=== PATIENT | female | born 1995 ===

== ENCOUNTER 2020-10-03 12:29 | Outpatient (CLI) | payer OTHER ==
[2020-10-03 13:49] VITALS: BP 120/68
[2020-10-03] MEDS ORDERED: LACTATED RINGERS 1,000 ML IV SCH (14:00)
== END 2020-10-03 14:55 | disposition home or self-care (01) ==
LOC: TRG 12:29 → APU 12:32 → TRG 14:55
PROVIDERS: ATTEND Obstetrics & Gynecology
DX: Z34.93 Encounter for supervision of normal pregnancy, unspecified, third trimester (principal); Z3A.37 37 weeks gestation of pregnancy
CPT/HCPCS: 59025

== ENCOUNTER 2020-10-06 03:32 | Inpatient (IN) | payer OTHER ==
--- NOTE | 2020-10-06 05:56 | History and Physical Report ---
History of Present Illness Date of examination: 10/06/20 Date of admission: 10/06/2020 Chief complaint: Contractions that started yesterday afternoon and became stronger during the night. SROM clear fluid yesterday in the AM, unknown time. History of present illness: Pt is a 25 y.o. Ecuadorean speaking @ 37.5 wks by EDC of 10/22/2020. This is complicated by GDM-diet controlled. She states that she started to have contractions on the afternoon of 10/05 after her water broke, for clear fluid, in the AM. She is not sure exactly what time her water broke, just that it was in the AM. She denies medical, surgical, or secondary set up man/abnormal PAPs. Denies drug/alcohol use. Past History Past Medical History: no pertinent history Past Surgical History: no surgical history [employer]ER History: other (GDM this . ) Family/Genetic History: none Social history: no significant social history - Obstetrical History Expected Date of Delivery: 10/22/20 Actual Gestation: 37 Week(s) 5 Day(s) : 1 Para: 0 Hx # Term Pregnancies: 0 Number of Pregnancies: 0 Spontaneous Abortions: 0 Induced : 0 Number of Living Children: 0 Medications and Allergies Allergies Allergy/AdvReac Type Severity Reaction Status Date / Time No Known Allergies Allergy Verified 10/03/20 13:29 Home Medications Medication Instructions Recorded Confirmed Last Taken Type Iron 1 tab PO DAILY 10/06/20 10/06/20 1 Day Ago History ~10/05/20 One Daily Tablet 1 tab PO DAILY 10/06/20 10/06/20 1 Day Ago History ~10/05/20 Review of Systems All systems: negative - Vital Signs Vital signs: Vital Signs Temp Pulse Resp BP 98.0 F 88 20 123/74 10/06/20 04:02 10/06/20 04:02 10/06/20 04:02 10/06/20 04:02 Temp Pulse Resp BP Pulse Ox 98.0 F 88 20 123/74 10/06/20 04:02 10/06/20 04:02 10/06/20 04:02 10/06/20 04:02 - Physical Exam Breasts: Positive: deferred Cardiovascular: Regular rate Lungs: Positive: Normal air movement Abdomen: Positive: normal appearance, soft Genitourinary (Female): Positive: normal external genitalia, normal perenium Vulva: both: normal Vagina: Positive: normal moisture Uterus: Positive: normal size Extremities: Positive: normal - Obstetrical FHR: category 1 Uterine Contraction Monitor Mode: External Cervical Dilatation: 3 Cervical Effacement Percentage: 70 station: -2 Uterine Contraction Pattern: Regular Uterine Tone Measurement Phase: Resting Uterine Contraction Intensity: Moderate Results Result Diagrams: 10/06/20 06:00 Abnormal lab results 10/06/20 Range/Units Unknown Membranes Rupture Positive A (Negative) All other labs normal. GBS UNKNOWN LABS DRAWN ON ADMISSION Assessment and Plan - Patient Problems (1) Gestational diabetes mellitus (GDM) Current Visit: Yes Status: Acute Qualifiers: Gestational diabetes mellitus control: diet-controlled Trimester: third trimester Qualified Code(s): O24.410 - Gestational diabetes mellitus in , diet controlled Plan to address problem: Sliding scale insulin ordered. Q 6 hrs point of care glucose accuchecks. (2) with 37 or more completed weeks gestation Onset Date: ~10/06/20 Current Visit: Yes Status: Acute Plan to address problem: Admit to labor and delivery. Draw labs. Initiate IV fluids. Continuos EFM during labor. Anticipate . (3) Rupture of membranes with clear amniotic fluid Onset Date: ~10/05/20 Current Visit: Yes Status: Acute Plan to address problem: Continue to monitor for s/sx of choroamnionitis. Take maternal temperature q 2 hours.
[2020-10-06] MEDS ORDERED: MINERAL OIL 30 ML ORAL LIQD PO PRN (05:59)
[2020-10-06] MEDS ORDERED: ePHEDrine SULFATE 50 MG/1 ML INJ IV PRN ×2 (05:59→13:50)
[2020-10-06] MEDS ORDERED: LIDOCAINE (2%) 20 MG/1 ML VIAL 20 ML MDV INFILTRATI ONE ×2 (05:59→16:42)
[2020-10-06] MEDS ORDERED: TERBUTALINE 1 MG/1 ML INJ SUB-Q PRN (05:59)
[2020-10-06] MEDS ORDERED: OXYTOCIN DRIP 30 UNITS/500 ML BAG IV SCH ×3 (06:00→21:00)
[2020-10-06] MEDS ORDERED: AMPICILLIN/NS 2 GM/100 ML 2 GM/100 ML BAG IV ONE ×2 (06:00→06:02)
[2020-10-06] MEDS ORDERED: LACTATED RINGERS 1,000 ML ONE ×2 (06:00→22:00)
[2020-10-06] MEDS: LACTATED RINGERS 1,000 ML IV SCH ×2 (06:00→11:40)
[2020-10-06] MEDS ORDERED: ONDANSETRON 4 MG/2 ML INJ IV PRN (06:02)
[2020-10-06] MEDS ORDERED: PROMETHAZINE 25 MG TAB PO PRN (06:02)
[2020-10-06] MEDS ORDERED: NALOXONE 0.4 MG/1 ML INJ IV PRN ×2 (06:02→20:52)
[2020-10-06] MEDS ORDERED: ACETAMINOPHEN 500 MG TAB PO PRN (06:02)
[2020-10-06] MEDS ORDERED: BUTORPHANOL 2 MG/1 ML INJ IV PRN (06:02)
[2020-10-06 07:05] LABS: Hematocrit 40.2 % (30.3-42.9); Hemoglobin 13.6 gm/dl (10.1-14.3); Mean Corpuscular HGB Conc 34 % (30-34); Mean Corpuscular Volume 91 fl (79-97); Platelet Count 163 K/mm3 (140-440); Red Blood Count 4.43 M/mm3 (3.65-5.03); Red Cell Distribution Width 13.8 % (13.2-15.2)
[2020-10-06 07:17] LABS: Hepatitis C Virus Antibody Non-Reactive (NonReactive)
[2020-10-06] MEDS ORDERED: OXYTOCIN 10 UNIT/1 ML INJ ONE ×2 (07:54→21:51)
[2020-10-06] MEDS ORDERED: DEXTROSE 50% IN WATER (25GM) 50 ML SYRINGE IV PRN (08:10)
[2020-10-06] MEDS: INSULIN REGULAR, HUMAN 100 UNITS/1 ML SUB-Q SCH ×2 (10:00→15:00)
[2020-10-06 10:29] LABS: Amphetamine Screen,Urine Negative; Benzodiazepines Screen,Urine Negative; Cannabinoid Screen,Urine Negative; Cocaine Screen,Urine Negative; Methadone Screen,Urine Negative; Opiate Screen,Urine Negative
[2020-10-06 10:36] LABS: Bilirubin,Urine NEG (Negative); Blood,Urine MOD (Negative); Color,Urine Amber (Yellow); Mucus,Urine FEW /HPF; Urobilinogen,Urine < 2.0 mg/dL (<2.0)
[2020-10-06] MEDS: AMPICILLIN/NS 1 GM/50 ML 1 GM/50 ML BAG IV SCH ×3 (10:48→18:43)
--- NOTE | 2020-10-06 13:31 | Progress Note ---
Assessment and Plan - Patient Problems (1) Gestational diabetes mellitus (GDM) Current Visit: Yes Status: Acute Qualifiers: Gestational diabetes mellitus control: diet-controlled Trimester: third trimester Qualified Code(s): O24.410 - Gestational diabetes mellitus in , diet controlled Plan to address problem: Continue to monitor glucose q 6 hrs through Accu-checks. (2) with 37 or more completed weeks gestation Onset Date: ~10/06/20 Current Visit: Yes Status: Acute Plan to address problem: Continuous EFM. (3) Prolonged rupture of membranes Onset Date: ~10/05/20 Current Visit: Yes Status: Acute Plan to address problem: Fluid continues to be clear at this time. Continue to monitor maternal temperatures. Continue to watch for s/sx of chorioamnionitis. Subjective - Subjective Date of service: 10/06/20 (Pt in a lot of pain from contractions. ) Principal diagnosis: IUP @ 37.5 wks, SROM on 10/05 in the AM?, GDM Patient reports: contractions Objective - Vital Signs Vital Signs: Vital Signs - 12hr 10/06/20 10/06/20 10/06/20 04:02 05:55 06:32 Temperature 98.0 F 98.6 F Pulse Rate 88 85 87 Respiratory 20 18 Rate Blood Pressure 123/74 Blood Pressure 130/75 [Right] O2 Sat by Pulse 98 84 Oximetry 10/06/20 10/06/20 10/06/20 06:33 06:37 06:42 Temperature Pulse Rate 88 92 H 106 H Respiratory Rate Blood Pressure 121/68 Blood Pressure [Right] O2 Sat by Pulse 98 97 Oximetry 10/06/20 10/06/20 10/06/20 06:47 06:52 06:57 Temperature Pulse Rate 88 83 88 Respiratory Rate Blood Pressure Blood Pressure [Right] O2 Sat by Pulse 96 96 96 Oximetry 10/06/20 10/06/20 10/06/20 07:03 07:05 07:06 Temperature 98.5 F Pulse Rate 90 92 H Respiratory 18 Rate Blood Pressure 118/66 Blood Pressure [Right] O2 Sat by Pulse 96 96 Oximetry 10/06/20 10/06/20 10/06/20 07:08 07:12 07:17 Temperature Pulse Rate 92 H 95 H 86 Respiratory Rate Blood Pressure Blood Pressure [Right] O2 Sat by Pulse 96 96 96 Oximetry 0410/06/20 10/06/20 07:22 07:27 07:32 Temperature Pulse Rate 94 H 91 H 92 H Respiratory Rate Blood Pressure Blood Pressure [Right] O2 Sat by Pulse 98 97 96 Oximetry 10/06/20 10/06/20 10/06/20 07:33 07:37 07:42 Temperature Pulse Rate 93 H 100 H 94 H Respiratory Rate Blood Pressure 128/69 Blood Pressure [Right] O2 Sat by Pulse 97 96 Oximetry 10/06/20 10/06/20 10/06/20 07:47 07:52 07:57 Temperature Pulse Rate 97 H 90 94 H Respiratory Rate Blood Pressure Blood Pressure [Right] O2 Sat by Pulse 96 97 97 Oximetry 10/06/20 10/06/20 10/06/20 08:00 08:02 08:04 Temperature 98.4 F Pulse Rate 82 80 Respiratory Rate Blood Pressure 113/59 Blood Pressure [Right] O2 Sat by Pulse 96 Oximetry 10/06/20 10/06/20 10/06/20 08:07 08:12 08:17 Temperature Pulse Rate 91 H 90 98 H Respiratory Rate Blood Pressure Blood Pressure [Right] O2 Sat by Pulse 98 97 97 Oximetry 10/06/20 10/06/20 10/06/20 08:22 08:27 08:32 Temperature Pulse Rate 83 103 H 84 Respiratory Rate Blood Pressure Blood Pressure [Right] O2 Sat by Pulse 97 97 97 Oximetry 10/06/20 10/06/20 10/06/20 08:34 08:37 08:42 Temperature Pulse Rate 78 89 87 Respiratory Rate Blood Pressure 123/74 Blood Pressure [Right] O2 Sat by Pulse 97 96 Oximetry 10/06/20 10/06/20 10/06/20 08:47 09:00 09:04 Temperature 98.4 F Pulse Rate 81 85 81 Respiratory Rate Blood Pressure 118/67 Blood Pressure [Right] O2 Sat by Pulse 97 99 Oximetry 10/06/20 10/06/20 10/06/20 09:05 09:10 09:15 Temperature Pulse Rate 78 96 H 82 Respiratory Rate Blood Pressure Blood Pressure [Right] O2 Sat by Pulse 97 98 98 Oximetry 10/06/20 10/06/20 10/06/20 09:20 09:25 09:30 Temperature Pulse Rate 83 85 82 Respiratory Rate Blood Pressure Blood Pressure [Right] O2 Sat by Pulse 98 97 97 Oximetry 10/06/20 10/06/20 10/06/20 09:34 09:35 09:40 Temperature Pulse Rate 82 93 H 91 H Respiratory Rate Blood Pressure 122/70 Blood Pressure [Right] O2 Sat by Pulse 98 98 Oximetry 10/06/20 10/06/20 10/06/20 09:45 09:50 09:55 Temperature Pulse Rate 88 84 86 Respiratory Rate Blood Pressure Blood Pressure [Right] O2 Sat by Pulse 98 99 97 Oximetry 10/06/20 10/06/20 10/06/20 09:58 10:00 10:05 Temperature 98.6 F Pulse Rate 84 87 Respiratory Rate Blood Pressure 121/72 Blood Pressure [Right] O2 Sat by Pulse 97 96 Oximetry 10/06/20 10/06/20 10/06/20 10:10 10:15 10:20 Temperature Pulse Rate 80 107 H 94 H Respiratory Rate Blood Pressure Blood Pressure [Right] O2 Sat by Pulse 96 97 98 Oximetry 10/06/20 10/06/20 10/06/20 10:25 10:35 10:37 Temperature Pulse Rate 96 H 81 Respiratory 20 Rate Blood Pressure 130/76 Blood Pressure [Right] O2 Sat by Pulse 96 99 Oximetry 10/06/20 10/06/20 10/06/20 10:40 10:45 10:50 Temperature Pulse Rate 74 102 H 85 Respiratory Rate Blood Pressure Blood Pressure [Right] O2 Sat by Pulse 99 98 97 Oximetry 10/06/20 10/06/20 10/06/20 10:55 11:00 11:04 Temperature 98.6 F Pulse Rate 86 90 81 Respiratory Rate Blood Pressure 128/68 Blood Pressure [Right] O2 Sat by Pulse 98 97 Oximetry 10/06/20 10/06/20 10/06/20 11:05 11:10 11:15 Temperature Pulse Rate 93 H 90 93 H Respiratory Rate Blood Pressure Blood Pressure [Right] O2 Sat by Pulse 97 96 97 Oximetry 10/06/20 10/06/20 10/06/20 11:17 11:20 11:25 Temperature Pulse Rate 80 93 H 98 H Respiratory Rate Blood Pressure Blood Pressure [Right] O2 Sat by Pulse 94 95 97 Oximetry 10/06/20 10/06/20 10/06/20 11:27 11:30 11:33 Temperature Pulse Rate 99 H 89 85 Respiratory Rate Blood Pressure 128/70 Blood Pressure [Right] O2 Sat by Pulse 93 96 Oximetry 10/06/20 10/06/20 10/06/20 11:35 11:37 11:40 Temperature Pulse Rate 84 82 Respiratory 16 Rate Blood Pressure Blood Pressure [Right] O2 Sat by Pulse 97 96 Oximetry 10/06/20 10/06/20 10/06/20 11:45 11:50 11:55 Temperature Pulse Rate 78 94 H 84 Respiratory Rate Blood Pressure Blood Pressure [Right] O2 Sat by Pulse 96 97 99 Oximetry 10/06/20 10/06/20 10/06/20 12:00 12:03 12:05 Temperature 98.2 F Pulse Rate 91 H 85 84 Respiratory 16 Rate Blood Pressure 102/57 Blood Pressure [Right] O2 Sat by Pulse 98 98 Oximetry 10/06/20 10/06/20 10/06/20 12:10 12:15 12:20 Temperature Pulse Rate 86 113 H 102 H Respiratory Rate Blood Pressure Blood Pressure [Right] O2 Sat by Pulse 98 99 96 Oximetry 10/06/20 10/06/20 10/06/20 12:25 12:30 12:33 Temperature Pulse Rate 100 H 101 H 98 H Respiratory Rate Blood Pressure 107/77 Blood Pressure [Right] O2 Sat by Pulse 99 97 Oximetry 10/06/20 10/06/20 10/06/20 12:35 12:38 12:40 Temperature Pulse Rate 92 H 111 H 123 H Respiratory Rate Blood Pressure Blood Pressure [Right] O2 Sat by Pulse 97 93 99 Oximetry 10/06/20 10/06/20 10/06/20 12:44 12:45 12:50 Temperature Pulse Rate 95 H 106 H 95 H Respiratory Rate Blood Pressure Blood Pressure [Right] O2 Sat by Pulse 94 99 99 Oximetry 10/06/20 10/06/20 10/06/20 12:51 12:55 12:57 Temperature Pulse Rate 91 H 103 H 84 Respiratory Rate Blood Pressure Blood Pressure [Right] O2 Sat by Pulse 94 97 93 Oximetry 10/06/20 10/06/20 10/06/20 13:00 13:04 13:05 Temperature Pulse Rate 115 H 97 H 117 H Respiratory Rate Blood Pressure 109/57 Blood Pressure [Right] O2 Sat by Pulse 92 99 Oximetry 10/06/20 10/06/20 10/06/20 13:10 13:15 13:18 Temperature Pulse Rate 90 93 H 92 H Respiratory Rate Blood Pressure Blood Pressure [Right] O2 Sat by Pulse 98 97 94 Oximetry 10/06/20 10/06/20 13:20 13:25 Temperature Pulse Rate 108 H 98 H Respiratory Rate Blood Pressure Blood Pressure [Right] O2 Sat by Pulse 98 98 Oximetry - Exam Narrative Exam: Cervical exam at this time is 5/70/-1. Pt appears to be in a lot of pain. 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 Pt has initially refused stating that she only wanted pain medication in her IV. We discussed that the epidural may help her relax and help with pain. Pt now states that she would like an epidural for pain. We also discussed why an IUPC was placed: so we can better monitor her contractions and see how strong they were. Pt verbalized understanding. Breasts: deferred Cardiovascular: Regular rate Lungs: Normal air movement Abdomen: Present: normal appearance Vulva: both: normal FHR: category 1 Uterine Contraction Monitor Mode: Internal Cervical Dilatation: 4.5 (IUPC placed. ) Cervical Effacement Percentage: 70 station: -1 Uterine Contraction Pattern: Regular Uterine Tone Measurement Phase: Resting Uterine Contraction Intensity: Moderate - Labs Labs: Abnormal Labs 10/06/20 10/06/20 06:02 Unknown Ur Specific [place] 1.032 H Urine WBC (Auto) 45.0 H U Epithel Cells (Auto) 15.0 H Membranes Rupture Positive A Laboratory Results - last 24 hr 10/06/20 10/06/20 10/06/20 06:00 06:00 06:00 WBC 10.7 RBC 4.43 Hgb 13.6 Hct 40.2 MCV 91 MCH 31 MCHC 34 RDW 13.8 Plt Count 163 Urine Color Urine Turbidity Urine pH Ur Specific [place] Urine Protein Urine Glucose (UA) Urine Ketones Urine Blood Urine Nitrite Urine Bilirubin Urine Urobilinogen Ur Leukocyte Esterase Urine WBC (Auto) Urine RBC (Auto) U Epithel Cells (Auto) Urine Mucus Membranes Rupture Urine Opiates Screen Urine Methadone Screen Ur Barbiturates Screen Ur Phencyclidine Scrn Ur Amphetamines Screen U Benzodiazepines Scrn Urine Cocaine Screen U Marijuana (THC) Screen Drugs of Abuse Note Syphilis IgG Antibody Nonreactive Hep Bs Antigen Non-reactive Hepatitis C Antibody Non-reactive HIV 1&2 Antibody Rapid Non react HIV P24 Antigen Non react Rubella IgG Antibody Immune Blood Type Antibody Screen 10/06/20 10/06/20 10/06/20 06:00 06:02 06:02 WBC RBC Hgb Hct MCV MCH MCHC RDW Plt Count Urine Color Bridget Urine Turbidity Slightly-cloudy Urine pH 6.0 Ur Specific [place] 1.032 H Urine Protein 100 mg/dl Urine Glucose (UA) Neg Urine Ketones 20 Urine Blood Mod Urine Nitrite Neg Urine Bilirubin Neg Urine Urobilinogen < 2.0 Ur Leukocyte Esterase Lg Urine WBC (Auto) 45.0 H Urine RBC (Auto) 43.0 U Epithel Cells (Auto) 15.0 H Urine Mucus Few Membranes Rupture Urine Opiates Screen Negative Urine Methadone Screen Negative Ur Barbiturates Screen Negative Ur Phencyclidine Scrn Negative Ur Amphetamines Screen Negative U Benzodiazepines Scrn Negative Urine Cocaine Screen Negative U Marijuana (THC) Screen Negative Drugs of Abuse Note Disclamer Syphilis IgG Antibody Hep Bs Antigen Hepatitis C Antibody HIV 1&2 Antibody Rapid HIV P24 Antigen Rubella IgG Antibody Blood Type O POSITIVE Antibody Screen Negative 10/06/20 Unknown WBC RBC Hgb Hct MCV MCH MCHC RDW Plt Count Urine Color Urine Turbidity Urine pH Ur Specific [place] Urine Protein Urine Glucose (UA) Urine Ketones Urine Blood Urine Nitrite Urine Bilirubin Urine Urobilinogen Ur Leukocyte Esterase Urine WBC (Auto) Urine RBC (Auto) U Epithel Cells (Auto) Urine Mucus Membranes Rupture Positive A Urine Opiates Screen Urine Methadone Screen Ur Barbiturates Screen Ur Phencyclidine Scrn Ur Amphetamines Screen U Benzodiazepines Scrn Urine Cocaine Screen U Marijuana (THC) Screen Drugs of Abuse Note Syphilis IgG Antibody Hep Bs Antigen Hepatitis C Antibody HIV 1&2 Antibody Rapid HIV P24 Antigen Rubella IgG Antibody Blood Type Antibody Screen
[2020-10-06] MEDS ORDERED: NalbUPHINE 10 MG/1 ML INJ IV PRN (13:50)
[2020-10-06] MEDS ORDERED: NALOXONE 2 MG/2 ML INJ IV PRN (13:50)
[2020-10-06] MEDS ORDERED: diphenhydrAMINE 50 MG/ML VIAL IV PRN (13:50)
[2020-10-06] MEDS ORDERED: fentaNYL-BUPIV 2 MCG/ML-0.125% 200 MCG/100 ML BAG EPIDURAL SCH (14:00)
--- NOTE | 2020-10-06 14:25 | Anesthesia Consultation ---
Anesthesia Consult and Med Hx Date of service: 10/06/20 - Airway Anesthetic Teeth Evaluation: Good ROM Head & Neck: Adequate Mental/Hyoid Distance: Adequate Mallampati Class: Class II Intubation Access Assessment: Probably Good - Pulmonary Exam CTA: Yes - Cardiac Exam Cardiac Exam: RRR - Pre-Operative Health Status ASA Pre-Surgery Classification: ASA2 Proposed Anesthetic Plan: Epidural - Pulmonary Hx Smoking: No Hx Asthma: No COPD: No Hx Pneumonia: No Hx Sleep Apnea: No - Cardiovascular System Hx Hypertension: No Hx Heart Attack/AMI: No Hx Angina: No - Central Nervous System Hx Seizures: No Hx Psychiatric Problems: No - Gastrointestinal Hx Gastroesophageal Reflux Disease: No - Endocrine Hx Renal Disease: No Hx End Stage Renal Disease: No Hx Insulin Dependent Diabetes: No Hx Non-Insulin Dependent Diabetes: No Hx Hypothyroidism: No Hx Hyperthyroidism: No - Hematic Hx Anemia: Yes (taking iron) Hx Sickle Cell Disease: No - Other Systems Hx Alcohol Use: No
--- NOTE | 2020-10-06 14:26 | Progress Note ---
Labor Epidural - Labor Epidural Start Time: 14:00 Stop Time: 14:20 Performed by:: MADALYN QUEZADA (Selvin HOANG) Procedure: Patient is requesting epidural for labor and pain. H&P, labs were reviewed. Patient IDed, H&P reviewed, all questions and concerns were answered, and consent was signed. Timeout was performed at bedside. Patient in sitting position. Sterile prep and drape was performed. 3ml of 1% lidocaine skin wheal at L[3]- L [4]. 18-gauge Tuohy epidural needle was advanced to loss of resistance with air technique 6cm. Negative CSF negative blood. Epidural catheter advanced to [11] centimeters. [negative] Aspiration [negative] test dose. Sterile dressing applied. Patient tolerated procedure.
[2020-10-06] MEDS ORDERED: LACTATED RINGERS 250 ML IV SOLN IV ONE (14:50)
--- NOTE | 2020-10-06 16:16 | Event Note ---
Date: 10/06/20 (Was informed by RN that pt had blood show.) Was informed by RN that pt had a large amount of bloody show when she was putting in the Gastelum catheter. Was asked to come and check patient. Cervical exam . Will continue to increase Pitocin per protocol.
--- NOTE | 2020-10-06 18:34 | Progress Note ---
Assessment and Plan A: 25 y.o. @ 37.5 wks, walk in pt, GDM, active labor. Cervical exam 6.5/90/0. P: Continue with Pitocin per protocol. Anticipate . - Patient Problems (1) Gestational diabetes mellitus (GDM) Current Visit: Yes Status: Acute Qualifiers: Gestational diabetes mellitus control: diet-controlled Trimester: third trimester Qualified Code(s): O24.410 - Gestational diabetes mellitus in , diet controlled (2) with 37 or more completed weeks gestation Onset Date: ~10/06/20 Current Visit: Yes Status: Acute (3) Prolonged rupture of membranes Onset Date: ~10/05/20 Current Visit: Yes Status: Acute Subjective - Subjective Date of service: 10/06/20 (Pt with some c/o vaginal pressure) Principal diagnosis: IUP @ 37.5 wks, SROM on 10/05 in the AM?, GDM Patient reports: other (vaginal pressure.) Objective - Vital Signs Vital Signs: Vital Signs - 12hr 10/06/20 10/06/20 10/06/20 06:32 06:33 06:37 Temperature Pulse Rate 87 88 92 H Respiratory Rate Blood Pressure 121/68 O2 Sat by Pulse 84 98 Oximetry 10/06/20 10/06/20 10/06/20 06:42 06:47 06:52 Temperature Pulse Rate 106 H 88 83 Respiratory Rate Blood Pressure O2 Sat by Pulse 97 96 96 Oximetry 10/06/20 10/06/20 10/06/20 06:57 07:03 07:05 Temperature Pulse Rate 88 90 92 H Respiratory Rate Blood Pressure 118/66 O2 Sat by Pulse 96 96 Oximetry 10/06/20 10/06/20 10/06/20 07:06 07:08 07:12 Temperature 98.5 F Pulse Rate 92 H 95 H Respiratory 18 Rate Blood Pressure O2 Sat by Pulse 96 96 96 Oximetry 10/06/20 10/06/20 10/06/20 07:17 07:22 07:27 Temperature Pulse Rate 86 94 H 91 H Respiratory Rate Blood Pressure O2 Sat by Pulse 96 98 97 Oximetry 10/06/20 10/06/20 10/06/20 07:32 07:33 07:37 Temperature Pulse Rate 92 H 93 H 100 H Respiratory Rate Blood Pressure 128/69 O2 Sat by Pulse 96 97 Oximetry 10/06/20 10/06/2010/06/21 07:42 07:47 07:52 Temperature Pulse Rate 94 H 97 H 90 Respiratory Rate Blood Pressure O2 Sat by Pulse 96 96 97 Oximetry 10/06/20 10/06/20 10/06/20 07:57 08:00 08:02 Temperature 98.4 F Pulse Rate 94 H 82 Respiratory Rate Blood Pressure O2 Sat by Pulse 97 96 Oximetry 10/06/20 10/06/20 10/06/20 08:04 08:07 08:12 Temperature Pulse Rate 80 91 H 90 Respiratory Rate Blood Pressure 113/59 O2 Sat by Pulse 98 97 Oximetry 10/06/20 10/06/20 10/06/20 08:17 08:22 08:27 Temperature Pulse Rate 98 H 83 103 H Respiratory Rate Blood Pressure O2 Sat by Pulse 97 97 97 Oximetry 10/06/20 10/06/20 10/06/20 08:32 08:34 08:37 Temperature Pulse Rate 84 78 89 Respiratory Rate Blood Pressure 123/74 O2 Sat by Pulse 97 97 Oximetry 10/06/20 10/06/20 10/06/20 08:42 08:47 09:00 Temperature 98.4 F Pulse Rate 87 81 85 Respiratory Rate Blood Pressure O2 Sat by Pulse 96 97 99 Oximetry 10/06/20 10/06/20 10/06/20 09:04 09:05 09:10 Temperature Pulse Rate 81 78 96 H Respiratory Rate Blood Pressure 118/67 O2 Sat by Pulse 97 98 Oximetry 10/06/20 10/06/20 10/06/20 09:15 09:20 09:25 Temperature Pulse Rate 82 83 85 Respiratory Rate Blood Pressure O2 Sat by Pulse 98 98 97 Oximetry 10/06/20 10/06/20 10/06/20 09:30 09:34 09:35 Temperature Pulse Rate 82 82 93 H Respiratory Rate Blood Pressure 122/70 O2 Sat by Pulse 97 98 Oximetry 10/06/20 10/06/20 10/06/20 09:40 09:45 09:50 Temperature Pulse Rate 91 H 88 84 Respiratory Rate Blood Pressure O2 Sat by Pulse 98 98 99 Oximetry 10/06/20 10/06/20 10/06/20 09:55 09:58 10:00 Temperature 98.6 F Pulse Rate 86 84 Respiratory Rate Blood Pressure O2 Sat by Pulse 97 97 Oximetry 10/06/20 10/06/20 10/06/20 10:05 10:10 10:15 Temperature Pulse Rate 87 80 107 H Respiratory Rate Blood Pressure 121/72 O2 Sat by Pulse 96 96 97 Oximetry 10/06/20 10/06/20 10/06/20 10:20 10:25 10:35 Temperature Pulse Rate 94 H 96 H 81 Respiratory Rate Blood Pressure 130/76 O2 Sat by Pulse 98 96 99 Oximetry 10/06/20 10/06/20 10/06/20 10:37 10:40 10:45 Temperature Pulse Rate 74 102 H Respiratory 20 Rate Blood Pressure O2 Sat by Pulse 99 98 Oximetry 10/06/20 10/06/20 10/06/20 10:50 10:55 11:00 Temperature 98.6 F Pulse Rate 85 86 90 Respiratory Rate Blood Pressure O2 Sat by Pulse 97 98 97 Oximetry 10/06/20 10/06/20 10/06/20 11:04 11:05 11:10 Temperature Pulse Rate 81 93 H 90 Respiratory Rate Blood Pressure 128/68 O2 Sat by Pulse 97 96 Oximetry 10/06/20 10/06/20 10/06/20 11:15 11:17 11:20 Temperature Pulse Rate 93 H 80 93 H Respiratory Rate Blood Pressure O2 Sat by Pulse 97 94 95 Oximetry 10/06/20 10/06/20 10/06/20 11:25 11:27 11:30 Temperature Pulse Rate 98 H 99 H 89 Respiratory Rate Blood Pressure O2 Sat by Pulse 97 93 96 Oximetry 10/06/20 10/06/20 10/06/20 11:33 11:35 11:37 Temperature Pulse Rate 85 84 Respiratory 16 Rate Blood Pressure 128/70 O2 Sat by Pulse 97 Oximetry 10/06/20 10/06/20 10/06/20 11:40 11:45 11:50 Temperature Pulse Rate 82 78 94 H Respiratory Rate Blood Pressure O2 Sat by Pulse 96 96 97 Oximetry 10/06/20 10/06/20 10/06/20 11:55 12:00 12:03 Temperature 98.2 F Pulse Rate 84 91 H 85 Respiratory 16 Rate Blood Pressure 102/57 O2 Sat by Pulse 99 98 Oximetry 10/06/20 10/06/20 10/06/20 12:05 12:10 12:15 Temperature Pulse Rate 84 86 113 H Respiratory Rate Blood Pressure O2 Sat by Pulse 98 98 99 Oximetry 0410/06/20 10/06/20 12:20 12:25 12:30 Temperature Pulse Rate 102 H 100 H 101 H Respiratory Rate Blood Pressure O2 Sat by Pulse 96 99 97 Oximetry 10/06/20 10/06/20 10/06/20 12:33 12:35 12:38 Temperature Pulse Rate 98 H 92 H 111 H Respiratory Rate Blood Pressure 107/77 O2 Sat by Pulse 97 93 Oximetry 10/06/20 10/06/20 10/06/20 12:40 12:44 12:45 Temperature Pulse Rate 123 H 95 H 106 H Respiratory Rate Blood Pressure O2 Sat by Pulse 99 94 99 Oximetry 10/06/20 10/06/20 10/06/20 12:50 12:51 12:55 Temperature Pulse Rate 95 H 91 H 103 H Respiratory Rate Blood Pressure O2 Sat by Pulse 99 94 97 Oximetry 10/06/20 10/06/20 10/06/20 12:57 13:00 13:04 Temperature Pulse Rate 84 115 H 97 H Respiratory Rate Blood Pressure 109/57 O2 Sat by Pulse 93 92 Oximetry 10/06/20 10/06/20 10/06/20 13:05 13:10 13:15 Temperature Pulse Rate 117 H 90 93 H Respiratory Rate Blood Pressure O2 Sat by Pulse 99 98 97 Oximetry 10/06/20 10/06/20 10/06/20 13:18 13:20 13:25 Temperature Pulse Rate 92 H 108 H 98 H Respiratory Rate Blood Pressure O2 Sat by Pulse 94 98 98 Oximetry 10/06/20 10/06/20 10/06/20 13:30 13:33 13:35 Temperature Pulse Rate 108 H 105 H 100 H Respiratory Rate Blood Pressure 138/89 O2 Sat by Pulse 99 98 Oximetry 10/06/20 10/06/20 10/06/20 13:39 13:40 13:45 Temperature Pulse Rate 117 H 95 H 84 Respiratory Rate Blood Pressure O2 Sat by Pulse 94 96 93 Oximetry 10/06/20 10/06/20 10/06/20 13:50 13:55 14:00 Temperature Pulse Rate 102 H 108 H 116 H Respiratory Rate Blood Pressure O2 Sat by Pulse 95 99 100 Oximetry 10/06/20 10/06/20 10/06/20 14:05 14:06 14:08 Temperature Pulse Rate 110 H 118 H 106 H Respiratory Rate Blood Pressure 129/72 131/72 O2 Sat by Pulse 100 Oximetry 10/06/20 10/06/20 10/06/20 14:10 14:12 14:14 Temperature Pulse Rate 102 H 108 H 111 H Respiratory Rate Blood Pressure 124/70 130/67 135/70 O2 Sat by Pulse 100 Oximetry 10/06/20 10/06/20 10/06/20 14:15 14:16 14:18 Temperature Pulse Rate 110 H 111 H 121 H Respiratory Rate Blood Pressure 127/70 127/71 O2 Sat by Pulse 100 Oximetry 10/06/20 10/06/20 10/06/20 14:20 14:22 14:24 Temperature Pulse Rate 104 H 112 H 125 H Respiratory Rate Blood Pressure 128/70 128/70 129/73 O2 Sat by Pulse 100 Oximetry 10/06/20 10/06/20 10/06/20 14:25 14:26 14:28 Temperature Pulse Rate 111 H 114 H 107 H Respiratory Rate Blood Pressure 122/72 132/62 O2 Sat by Pulse 100 Oximetry 10/06/20 10/06/20 10/06/20 14:30 14:32 14:34 Temperature Pulse Rate 100 H 99 H 90 Respiratory Rate Blood Pressure 114/58 101/54 89/50 O2 Sat by Pulse 100 Oximetry 10/06/20 10/06/20 10/06/20 14:35 14:36 14:38 Temperature Pulse Rate 94 H 86 83 Respiratory Rate Blood Pressure 91/51 115/77 O2 Sat by Pulse 100 Oximetry 10/06/20 10/06/20 10/06/20 14:40 14:42 14:44 Temperature Pulse Rate 94 H 89 83 Respiratory Rate Blood Pressure 120/56 112/59 O2 Sat by Pulse 99 88 Oximetry 10/06/20 10/06/20 10/06/20 14:45 14:46 14:48 Temperature Pulse Rate 85 87 109 H Respiratory Rate Blood Pressure 103/58 O2 Sat by Pulse 100 91 Oximetry 10/06/20 10/06/20 10/06/20 14:49 14:50 14:52 Temperature Pulse Rate 103 H 100 H 82 Respiratory Rate Blood Pressure 92/53 93/51 98/56 O2 Sat by Pulse 100 Oximetry 10/06/20 10/06/20 10/06/20 14:54 14:55 14:56 Temperature Pulse Rate 90 79 79 Respiratory Rate Blood Pressure 95/53 100/55 O2 Sat by Pulse 99 Oximetry 10/06/20 10/06/20 10/06/20 14:58 15:00 15:02 Temperature Pulse Rate 91 H 77 77 Respiratory Rate Blood Pressure 91/54 99/56 83/50 O2 Sat by Pulse 100 Oximetry 10/06/20 10/06/20 10/06/20 15:04 15:05 15:06 Temperature Pulse Rate 88 75 74 Respiratory Rate Blood Pressure 84/52 94/54 O2 Sat by Pulse 99 Oximetry 10/06/20 10/06/20 10/06/20 15:08 15:10 15:12 Temperature Pulse Rate 79 79 76 Respiratory Rate Blood Pressure 101/55 100/57 98/55 O2 Sat by Pulse 96 Oximetry 10/06/20 10/06/20 10/06/20 15:14 15:15 15:16 Temperature Pulse Rate 84 81 95 H Respiratory Rate Blood Pressure 96/55 92/51 O2 Sat by Pulse 98 Oximetry 10/06/20 10/06/20 10/06/20 15:18 15:20 15:22 Temperature Pulse Rate 85 90 81 Respiratory Rate Blood Pressure 118/54 106/54 107/59 O2 Sat by Pulse 100 Oximetry 10/06/20 10/06/20 10/06/20 15:24 15:25 15:30 Temperature Pulse Rate 92 H 77 77 Respiratory Rate Blood Pressure 94/52 O2 Sat by Pulse 100 100 Oximetry 10/06/20 10/06/20 10/06/20 15:35 15:39 15:40 Temperature Pulse Rate 80 77 74 Respiratory Rate Blood Pressure 101/57 O2 Sat by Pulse 99 99 Oximetry 10/06/20 10/06/20 10/06/20 15:45 15:50 15:55 Temperature Pulse Rate 85 76 71 Respiratory Rate Blood Pressure 105/59 O2 Sat by Pulse 97 98 98 Oximetry 10/06/20 10/06/20 10/06/20 16:00 16:05 16:10 Temperature 98.4 F Pulse Rate 87 86 82 Respiratory Rate Blood Pressure 107/55 O2 Sat by Pulse 98 98 99 Oximetry 10/06/20 10/06/20 10/06/20 16:15 16:20 16:24 Temperature Pulse Rate 68 84 88 Respiratory Rate Blood Pressure 100/57 O2 Sat by Pulse 98 99 Oximetry 10/06/20 10/06/20 10/06/20 16:25 16:30 16:35 Temperature Pulse Rate 96 H 92 H 89 Respiratory Rate Blood Pressure O2 Sat by Pulse 100 100 98 Oximetry 10/06/20 10/06/20 10/06/20 16:40 16:45 16:50 Temperature Pulse Rate 89 96 H 95 H Respiratory Rate Blood Pressure 118/65 O2 Sat by Pulse 100 99 100 Oximetry 10/06/20 10/06/20 10/06/20 16:54 16:55 17:00 Temperature 98.1 F Pulse Rate 103 H 89 78 Respiratory Rate Blood Pressure 108/59 O2 Sat by Pulse 100 99 Oximetry 10/06/20 10/06/20 10/06/20 17:05 17:10 17:15 Temperature Pulse Rate 83 97 H 90 Respiratory Rate Blood Pressure O2 Sat by Pulse 100 100 100 Oximetry 10/06/20 10/06/20 10/06/20 17:20 17:25 17:30 Temperature Pulse Rate 95 H 99 H 88 Respiratory Rate Blood Pressure 106/57 O2 Sat by Pulse 99 100 100 Oximetry 10/06/20 10/06/20 10/06/20 17:35 17:40 17:45 Temperature Pulse Rate 106 H 90 76 Respiratory Rate Blood Pressure 106/65 O2 Sat by Pulse 100 99 99 Oximetry 10/06/20 10/06/20 10/06/20 17:50 17:55 18:00 Temperature Pulse Rate 95 H 109 H 96 H Respiratory Rate Blood Pressure 112/58 O2 Sat by Pulse 100 100 99 Oximetry 10/06/20 10/06/20 10/06/20 18:05 18:09 18:10 Temperature Pulse Rate 83 85 86 Respiratory Rate Blood Pressure 104/58 O2 Sat by Pulse 99 100 Oximetry 10/06/20 10/06/20 10/06/20 18:15 18:20 18:25 Temperature Pulse Rate 82 89 88 Respiratory Rate Blood Pressure O2 Sat by Pulse 100 100 98 Oximetry 10/06/20 18:28 Temperature Pulse Rate 82 Respiratory Rate Blood Pressure 108/66 O2 Sat by Pulse Oximetry - Exam Breasts: deferred Cardiovascular: Regular rate Lungs: Normal air movement Abdomen: Present: normal appearance, soft Vulva: both: normal FHR: category 1 Uterine Contraction Monitor Mode: External Cervical Dilatation: 6.5 Cervical Effacement Percentage: 90 (A large amount of clear fluid noted on pad.) station: 0 Uterine Contraction Pattern: Regular Uterine Tone Measurement Phase: Resting Uterine Contraction Intensity: Moderate - Labs Labs: Abnormal Labs 10/06/20 10/06/20 10/06/20 06:02 09:36 Unknown POC Glucose 109 H Ur Specific [place] 1.032 H Urine WBC (Auto) 45.0 H U Epithel Cells (Auto) 15.0 H Membranes Rupture Positive A Laboratory Results - last 24 hr 10/06/20 10/06/20 10/06/20 05:51 06:00 06:00 WBC 10.7 RBC 4.43 Hgb 13.6 Hct 40.2 MCV 91 MCH 31 MCHC 34 RDW 13.8 Plt Count 163 POC Glucose 99 Urine Color Urine Turbidity Urine pH Ur Specific [place] Urine Protein Urine Glucose (UA) Urine Ketones Urine Blood Urine Nitrite Urine Bilirubin Urine Urobilinogen Ur Leukocyte Esterase Urine WBC (Auto) Urine RBC (Auto) U Epithel Cells (Auto) Urine Mucus Membranes Rupture Urine Opiates Screen Urine Methadone Screen Ur Barbiturates Screen Ur Phencyclidine Scrn Ur Amphetamines Screen U Benzodiazepines Scrn Urine Cocaine Screen U Marijuana (THC) Screen Drugs of Abuse Note Syphilis IgG Antibody Nonreactive Coronavirus (PCR) Hep Bs Antigen Hepatitis C Antibody Non-reactive HIV 1&2 Antibody Rapid Non react HIV P24 Antigen Non react Rubella IgG Antibody Immune Blood Type Antibody Screen 10/06/20 10/06/20 10/06/20 06:00 06:00 06:02 WBC RBC Hgb Hct MCV MCH MCHC RDW Plt Count POC Glucose Urine Color Bridget Urine Turbidity Slightly-cloudy Urine pH 6.0 Ur Specific [place] 1.032 H Urine Protein 100 mg/dl Urine Glucose (UA) Neg Urine Ketones 20 Urine Blood Mod Urine Nitrite Neg Urine Bilirubin Neg Urine Urobilinogen < 2.0 Ur Leukocyte Esterase Lg Urine WBC (Auto) 45.0 H Urine RBC (Auto) 43.0 U Epithel Cells (Auto) 15.0 H Urine Mucus Few Membranes Rupture Urine Opiates Screen Urine Methadone Screen Ur Barbiturates Screen Ur Phencyclidine Scrn Ur Amphetamines Screen U Benzodiazepines Scrn Urine Cocaine Screen U Marijuana (THC) Screen Drugs of Abuse Note Syphilis IgG Antibody Coronavirus (PCR) Hep Bs Antigen Non-reactive Hepatitis C Antibody HIV 1&2 Antibody Rapid HIV P24 Antigen Rubella IgG Antibody Blood Type O POSITIVE Antibody Screen Negative 10/06/20 10/06/20 10/06/20 06:02 09:30 09:36 WBC RBC Hgb Hct MCV MCH MCHC RDW Plt Count POC Glucose 109 H Urine Color Urine Turbidity Urine pH Ur Specific [place] Urine Protein Urine Glucose (UA) Urine Ketones Urine Blood Urine Nitrite Urine Bilirubin Urine Urobilinogen Ur Leukocyte Esterase Urine WBC (Auto) Urine RBC (Auto) U Epithel Cells (Auto) Urine Mucus Membranes Rupture Urine Opiates Screen Negative Urine Methadone Screen Negative Ur Barbiturates Screen Negative Ur Phencyclidine Scrn Negative Ur Amphetamines Screen Negative U Benzodiazepines Scrn Negative Urine Cocaine Screen Negative U Marijuana (THC) Screen Negative Drugs of Abuse Note Disclamer Syphilis IgG Antibody Coronavirus (PCR) Negative Hep Bs Antigen Hepatitis C Antibody HIV 1&2 Antibody Rapid HIV P24 Antigen Rubella IgG Antibody Blood Type Antibody Screen 10/06/20 10/06/20 16:55 Unknown WBC RBC Hgb Hct MCV MCH MCHC RDW Plt Count POC Glucose 102 Urine Color Urine Turbidity Urine pH Ur Specific [place] Urine Protein Urine Glucose (UA) Urine Ketones Urine Blood Urine Nitrite Urine Bilirubin Urine Urobilinogen Ur Leukocyte Esterase Urine WBC (Auto) Urine RBC (Auto) U Epithel Cells (Auto) Urine Mucus Membranes Rupture Positive A Urine Opiates Screen Urine Methadone Screen Ur Barbiturates Screen Ur Phencyclidine Scrn Ur Amphetamines Screen U Benzodiazepines Scrn Urine Cocaine Screen U Marijuana (THC) Screen Drugs of Abuse Note Syphilis IgG Antibody Coronavirus (PCR) Hep Bs Antigen Hepatitis C Antibody HIV 1&2 Antibody Rapid HIV P24 Antigen Rubella IgG Antibody Blood Type Antibody Screen
[2020-10-06] MEDS ORDERED: PROMETHAZINE 25 MG RECT SUPP PR PRN (20:52)
[2020-10-06] MEDS ORDERED: HYDROmorphone 1 MG/1 ML INJ IV PRN (20:52)
[2020-10-06] MEDS ORDERED: FAMOTIDINE 20 MG/2 ML INJ IV ONE (20:53)
[2020-10-06] MEDS ORDERED: BICITRA ORAL LIQD 30ML PO SCH (20:53)
--- NOTE | 2020-10-06 20:54 | Anesthesia Day of Surgery ---
Anesthesia Day of Surgery - Day of Surgery Patient Examined: Yes Patient H&P Reviewed: Yes Patient is NPO: Yes Beta Blockers: No Cardiac Clearance: No Pulmonary Clearance: No Dayron's Test: N/A
[2020-10-06] MEDS ORDERED: ceFAZolin/Water 2 GM/20 ML 2 GM/20 ML SYRINGE IV ONE (20:55)
--- NOTE | 2020-10-06 20:59 | Event Note ---
Date: 10/06/20 (Spoke with pt regarding labor progress. ) Used housekeeping aid line to speak with pt regarding her labor progress. We discussed that labor has not progressed as it should and a will be needed at this time. Pt and verbalized understanding. Made Dr. Ruiz aware of patient's labor progress and pt wish to proceed with a c- section at this time. Consents signed and placed on chart.
[2020-10-06] MEDS ORDERED: ceFAZolin/Water 2 GM/20 ML 2 GM/20 ML SYRINGE IV NR (21:00)
[2020-10-06] MEDS ORDERED: dexAMETHasone 20 MG/5 ML VIAL ONE (21:05)
[2020-10-06] MEDS ORDERED: BUPIVACAINE/PF (0.5%) 5 MG/1 ML 30 ML VIAL INFILTRATI ONE (21:05)
[2020-10-06] MEDS ORDERED: KETOROLAC 30 MG/1 ML INJ ONE (21:05)
[2020-10-06] MEDS ORDERED: ONDANSETRON 4 MG/2 ML INJ ONE (21:05)
[2020-10-06] MEDS ORDERED: LIDOCAINE 2%/EPINEPHRINE 1:200,000 VIAL (20 ML) INFILTRATI ONE (21:05)
[2020-10-06] MEDS ORDERED: METOCLOPRAMIDE 10 MG/2 ML INJ IV ONE (21:53)
--- NOTE | 2020-10-06 21:56 | Event Note ---
Date: 10/06/20 Patient with failure of dilatation and descent with adequate contractions. Consent was obtained through limnologist. Patient informed the risks of the surgery include bleeding possibly bleeding heavy enough to require blood transfusion, infection possible damage to bowel bladder ureter. All questions answered. Patient agrees to proceed
[2020-10-06] MEDS ORDERED: ceFAZolin/STERILE WATER 2 GM/20 ML SYRINGE IV ONE (22:00)
[2020-10-06] MEDS ORDERED: WATER FOR IRRIG STERILE 1,500 ML BOTTLE IR ONE (22:00)
[2020-10-06] MEDS ORDERED: SODIUM CHLORIDE 0.9% IRR 1,500 ML BOTTLE IR ONE (22:00)
[2020-10-06] MEDS ORDERED: PHENYLEPHRINE/NS 1,000 MCG/10 ML SYRINGE (OR USE) IV ONE (22:00)
--- NOTE | 2020-10-06 23:10 | Operative Report ---
Operative Report Operative Report: Date of procedure: October 06, 2020 Pre-operative diagnosis: Intrauterine at 37 weeks with limited pr enatal care with gestational diabetes and arrest of dilatation Post-operative diagnosis: Same Procedure name(s): Primary low transverse section Surgeon: Mathew Ruiz MD Parking Lot Manager: Eva Garcia, certified nurse senior operations analyst Anesthesia: Epidural EBL: 500 cc Complications: None Findings: Patient with normal uterus tubes and ovaries bilaterally. Male weight 7 pounds 5 ounces Apgars 8 at 1 minute and 9 at 5 minutes Specimen(s): None Procedure: The patient was brought to the operating room. Her epidural was dosed was placed without any complications. She was then placed in left lateral tilt. Prepped and draped in the usual sterile manner. After testing for adequate anesthesia level, a Pfannenstiel incision was made. This incision was taken down to the fascia. The fascia was then nicked in the midline. This incision was extended out laterally with Gonzalez scissors. The fascia was then sharply and bluntly from the underlying rectus muscles. The rectus muscles were bluntly and sharply . The peritoneum was then entered with the control panel operator's fingers. This incision was spread vertically with care not to damage the bladder below. The [place] self-retaining tractor was then placed without any difficulty. The bladder flap was then formed sharply and bluntly with Metzenbaum scissors. A transverse incision was made in lower uterine segment. This incision was extended laterally with the operators fingers. The amniotic sac was then entered bluntly with the control panel operator's fingers. The was delivered from the vertex position. Bulb suction on the mother's abdomen. Cord was double clamped and cut. The infant was then passed to the nursery personnel who were in attendance. The above scores were given by the nursery personnel. The placenta was then bluntly removed. The uterus was then externalized and wiped clean the remaining products. The uterine incision was closed in layers. The first incision was closed in a locking manner using 0 Vicryl. This was followed by imbricating stitch also with 0 Vicryl. This closure was hemostatic. The bladder flap was copiously irrigated and found to be hemostatic. The pelvis was copiously irrigated and found to be hemostatic. The uterus was then placed back to the patient's abdomen. The retractors were removed. The rectus muscles were inspected and found to be hemostatic. The fascia was then closed in a running manner using 0 Vicryl. This incision was hemostatic irrigation Bovie. The subcuticular space was reapproximated with Vicryl sutures. The skin was reapproximated with 4-0 Vicryl subcuticularly. Dermabond was placed over the skin incision the patient tolerated procedure well. Her urine was blood-tinged prior to procedure and aga in blood-tinged afterwards. The was admitted to the well baby nursery. The patient was accompanied to recovery room in good condition. Instrument count correct times 3.
[2020-10-06] MEDS ORDERED: METHYLERGONOVINE MALEATE 0.2 MG/ML VIAL IM ONE (23:16)
[2020-10-06] MEDS ORDERED: CARBOPROST TROMETHAMINE 250 MCG/1 ML INJ IM ONE ×2 (23:44→23:45)
[2020-10-06] MEDS ORDERED: DIPHENOXYLATE/ATROPINE TAB ONE (23:45)
[2020-10-07] MEDS ORDERED: LOPERAMIDE 2 MG CAP PO PRN (00:10)
[2020-10-07] MEDS ORDERED: SODIUM CHLORIDE 0.9% 1000 ML 1,000 ML IV SCH (00:22)
[2020-10-07] MEDS ORDERED: NALOXONE 0.4 MG/1 ML INJ IV PRN (00:22)
[2020-10-07] MEDS ORDERED: MAGNESIUM HYDROXIDE (MOM) ORAL LIQD UDC PO PRN (00:22)
[2020-10-07] MEDS ORDERED: SIMETHICONE 80 MG CHEW TAB PO PRN (00:22)
[2020-10-07] MEDS ORDERED: OXYTOCIN DRIP 30 UNITS/500 ML BAG IV SCH (00:22)
[2020-10-07] MEDS ORDERED: WITCH HAZEL/ GLYCERIN PAD TP PRN (00:22)
[2020-10-07] MEDS ORDERED: LANOLIN/ZINC/DIMETHICONE (LANSINOH) 7 GM TP PRN (00:22)
[2020-10-07] MEDS ORDERED: LACTATED RINGERS 1,000 ML IV SCH (00:45)
[2020-10-07] MEDS: KETOROLAC 30 MG/1 ML INJ IV SCH ×4 (04:35→22:07)
--- NOTE | 2020-10-07 05:51 | Progress Note ---
Assessment and Plan - Patient Problems (1) delivery delivered Onset Date: ~10/07/20 Current Visit: Yes Status: Acute Plan to address problem: Pt awake resting No c/o voiced. VSS FF below umb Lochia small Incision D&I H&H pending. No s/sx of anemia. Doing well s/p P: continue pathway Advance diet and activity as tolerated Subjective - Subjective Date of service: 10/07/20 (FOB acted as yoker) Principal diagnosis: Day # 1 s/p section Patient reports: appetite normal, voiding normally, pain well controlled, ambulating normally : doing well Objective - Vital Signs Latest vital signs: Vital Signs Temp Pulse Resp BP BP Pulse Ox 10/07/20 05:05 18 10/07/20 04:35 18 10/07/20 01:06 97.8 F 77 18 105/65 99 10/07/20 00:00 97.8 F 81 14 114/63 98 10/06/20 23:45 72 16 110/74 96 10/06/20 23:30 80 15 113/71 98 10/06/20 23:15 82 12 110/69 96 10/06/20 23:10 83 16 113/71 97 10/06/20 23:05 91 H 17 114/66 98 10/06/20 23:00 97.9 F 95 H 13 118/61 98 10/06/20 21:45 87 98 10/06/20 21:40 88 99 10/06/20 21:39 80 112/60 10/06/20 21:35 86 99 10/06/20 21:30 86 98 10/06/20 21:25 97 H 113/60 100 10/06/20 21:24 98.3 F 101 H 17 113/60 99 10/06/20 21:20 104 H 98 10/06/20 21:15 98 H 99 10/06/20 21:10 103 H 124/74 99 10/06/20 21:05 124 H 98 10/06/20 21:00 100 H 100 10/06/20 20:55 109 H 123/55 100 10/06/20 20:50 102 H 100 10/06/20 20:45 91 H 99 10/06/20 20:40 97 H 99 10/06/20 20:39 98 H 113/66 10/06/20 20:35 105 H 99 10/06/20 20:30 90 98 10/06/20 20:25 87 108/70 100 10/06/20 20:20 103 H 99 10/06/20 20:15 92 H 100 10/06/20 20:10 89 99 10/06/20 20:05 95 H 97 10/06/20 20:00 85 98 10/06/20 19:55 99 H 100 10/06/20 19:50 87 99 10/06/20 19:45 85 99 10/06/20 19:40 84 99 10/06/20 19:39 151 H 121/73 10/06/20 19:35 83 98 10/06/20 19:30 81 98 10/06/20 19:25 76 98 10/06/20 19:24 96 H 107/69 10/06/20 19:20 80 97 10/06/20 19:15 80 98 10/06/20 19:10 83 99 10/06/20 19:09 86 105/68 10/06/20 19:08 98.1 F 16 10/06/20 19:05 91 H 98 10/06/20 19:00 83 98 10/06/20 18:55 82 98 10/06/20 18:54 75 103/64 10/06/20 18:50 83 98 10/06/20 18:45 78 100 10/06/20 18:40 80 98 10/06/20 18:39 76 99/62 10/06/20 18:35 78 99 10/06/20 18:30 85 99 10/06/20 18:28 82 108/66 10/06/20 18:25 88 98 10/06/20 18:20 89 100 10/06/20 18:15 82 100 10/06/20 18:10 86 100 10/06/20 18:09 85 104/58 10/06/20 18:05 83 99 10/06/20 18:00 96 H 99 10/06/20 17:55 109 H 112/58 100 10/06/20 17:50 95 H 100 10/06/20 17:45 76 99 10/06/20 17:40 90 106/65 99 10/06/20 17:35 106 H 100 10/06/20 17:30 88 100 10/06/20 17:25 99 H 106/57 100 10/06/20 17:20 95 H 99 10/06/20 17:15 90 100 10/06/20 17:10 97 H 100 10/06/20 17:05 83 100 10/06/20 17:00 98.1 F 78 99 10/06/20 16:55 89 100 10/06/20 16:54 103 H 108/59 10/06/20 16:50 95 H 100 10/06/20 16:45 96 H 99 10/06/20 16:40 89 118/65 100 10/06/20 16:35 89 98 10/06/20 16:30 92 H 100 10/06/20 16:25 96 H 100 10/06/20 16:24 88 100/57 10/06/20 16:20 84 99 10/06/20 16:15 68 98 10/06/20 16:10 82 107/55 99 10/06/20 16:05 86 98 10/06/20 16:00 98.4 F 87 98 10/06/20 15:55 71 105/59 98 10/06/20 15:50 76 98 10/06/20 15:45 85 97 10/06/20 15:40 74 99 10/06/20 15:39 77 101/57 10/06/20 15:35 80 99 10/06/20 15:30 77 100 10/06/20 15:25 77 100 10/06/20 15:24 92 H 94/52 10/06/20 15:22 81 107/59 10/06/20 15:20 90 106/54 100 10/06/20 15:18 85 118/54 10/06/20 15:16 95 H 92/51 10/06/20 15:15 81 98 10/06/20 15:14 84 96/55 10/06/20 15:12 76 98/55 10/06/20 15:10 79 100/57 96 10/06/20 15:08 79 101/55 10/06/20 15:06 74 94/54 10/06/20 15:05 75 99 10/06/20 15:04 88 84/52 10/06/20 15:02 77 83/50 10/06/20 15:00 77 99/56 100 10/06/20 14:58 91 H 91/54 04/04/21 14:56 79 100/55 10/06/20 14:55 79 99 10/06/20 14:54 90 95/53 10/06/20 14:52 82 98/56 10/06/20 14:50 100 H 93/51 100 10/06/20 14:49 103 H 92/53 10/06/20 14:48 109 H 91 10/06/20 14:46 87 103/58 10/06/20 14:45 85 100 10/06/20 14:44 83 112/59 10/06/20 14:42 89 120/56 88 10/06/20 14:40 94 H 99 10/06/20 14:38 83 115/77 10/06/20 14:36 86 91/51 10/06/20 14:35 94 H 100 10/06/20 14:34 90 89/50 10/06/20 14:32 99 H 101/54 10/06/20 14:30 100 H 114/58 100 10/06/20 14:28 107 H 132/62 10/06/20 14:26 114 H 122/72 10/06/20 14:25 111 H 100 10/06/20 14:24 125 H 129/73 10/06/20 14:22 112 H 128/70 10/06/20 14:20 104 H 128/70 100 10/06/20 14:18 121 H 127/71 10/06/20 14:16 111 H 127/70 10/06/20 14:15 110 H 100 10/06/20 14:14 111 H 135/70 10/06/20 14:12 108 H 130/67 10/06/20 14:10 102 H 124/70 100 10/06/20 14:08 106 H 131/72 10/06/20 14:06 118 H 129/72 10/06/20 14:05 110 H 100 10/06/20 14:00 116 H 100 10/06/20 13:55 108 H 99 10/06/20 13:50 102 H 95 10/06/20 13:45 84 93 10/06/20 13:40 95 H 96 10/06/20 13:39 117 H 94 10/06/20 13:35 100 H 98 10/06/20 13:33 105 H 138/89 10/06/20 13:30 108 H 99 10/06/20 13:25 98 H 98 10/06/20 13:20 108 H 98 10/06/20 13:18 92 H 94 10/06/20 13:15 93 H 97 10/06/20 13:10 90 98 10/06/20 13:05 117 H 99 10/06/20 13:04 97 H 109/57 10/06/20 13:00 115 H 92 10/06/20 12:57 84 93 10/06/20 12:55 103 H 97 10/06/20 12:51 91 H 94 10/06/20 12:50 95 H 99 10/06/20 12:45 106 H 99 10/06/20 12:44 95 H 94 10/06/20 12:40 123 H 99 10/06/20 12:38 111 H 93 10/06/20 12:35 92 H 97 10/06/20 12:33 98 H 107/77 10/06/20 12:30 101 H 97 10/06/20 12:25 100 H 99 10/06/20 12:20 102 H 96 10/06/20 12:15 113 H 99 10/06/20 12:10 86 98 10/06/20 12:05 84 98 10/06/20 12:03 85 102/57 10/06/20 12:00 98.2 F 91 H 16 98 10/06/20 11:55 84 99 10/06/20 11:50 94 H 97 10/06/20 11:45 78 96 10/06/20 11:40 82 96 10/06/20 11:37 16 10/06/20 11:35 84 97 10/06/20 11:33 85 128/70 10/06/20 11:30 89 96 10/06/20 11:27 99 H 93 10/06/20 11:25 98 H 97 10/06/20 11:20 93 H 95 10/06/20 11:17 80 94 10/06/20 11:15 93 H 97 10/06/20 11:10 90 96 10/06/20 11:05 93 H 97 10/06/20 11:04 81 128/68 10/06/20 11:00 98.6 F 90 97 10/06/20 10:55 86 98 10/06/20 10:50 85 97 10/06/20 10:45 102 H 98 10/06/20 10:40 74 99 10/06/20 10:37 20 10/06/20 10:35 81 130/76 99 10/06/20 10:25 96 H 96 10/06/20 10:20 94 H 98 10/06/20 10:15 107 H 97 10/06/20 10:10 80 96 10/06/20 10:05 87 121/72 96 10/06/20 10:00 84 97 10/06/20 09:58 98.6 F 10/06/20 09:55 86 97 10/06/20 09:50 84 99 10/06/20 09:45 88 98 10/06/20 09:40 91 H 98 10/06/20 09:35 93 H 98 10/06/20 09:34 82 122/70 10/06/20 09:30 82 97 10/06/20 09:25 85 97 10/06/20 09:20 83 98 10/06/20 09:15 82 98 10/06/20 09:10 96 H 98 10/06/20 09:05 78 97 10/06/20 09:04 81 118/67 10/06/20 09:00 98.4 F 85 99 10/06/20 08:47 81 97 10/06/20 08:42 87 96 10/06/20 08:37 89 97 10/06/20 08:34 78 123/74 10/06/20 08:32 84 97 10/06/20 08:27 103 H 97 10/06/20 08:22 83 97 10/06/20 08:17 98 H 97 10/06/20 08:12 90 97 10/06/20 08:07 91 H 98 10/06/20 08:04 80 113/59 10/06/20 08:02 82 96 10/06/20 08:00 98.4 F 10/06/20 07:57 94 H 97 10/06/20 07:52 90 97 10/06/20 07:47 97 H 96 10/06/20 07:42 94 H 96 10/06/20 07:37 100 H 97 10/06/20 07:33 93 H 128/69 10/06/20 07:32 92 H 96 10/06/20 07:27 91 H 97 10/06/20 07:22 94 H 98 10/06/20 07:17 86 96 10/06/20 07:12 95 H 96 10/06/20 07:08 92 H 96 10/06/20 07:06 98.5 F 18 96 10/06/20 07:05 92 H 118/66 10/06/20 07:03 90 96 10/06/20 06:57 88 96 10/06/20 06:52 83 96 10/06/20 06:47 88 96 10/06/20 06:42 106 H 97 10/06/20 06:37 92 H 98 10/06/20 06:33 88 121/68 10/06/20 06:32 87 84 10/06/20 05:55 98.6 F 85 18 130/75 98 Intake and Output 10/06/20 10/06/20 10/07/20 14:59 22:59 06:59 Intake Total 676.706 2520.2 740 Output Total 200 1200 1300 Balance 573.800 -82.8 -560 Intake: IV 835.893 2011.2 500 AMPICILLIN/NS 1 GM/50 ML 50 50 1 gm In 50 ml @ 100 mls/ hr IV Q4H NAUN Rx#: [id number] Lactated Ringers 1,000 ml 708.333 @ 125 mls/hr IV DIRECT NAUN Rx#:[id number] PITOCin/NS 30 UNIT/500ML 15.467 67.2 30 units In 500 ml @ 4 mls/hr IV TITR NAUN Rx#: [id number] Intake, Free Water 240 Output: Urine 200 1200 1300 Indwelling Catheter 100 1100 900 Uretheral (Gastelum) 200 Void 100 Other: Total, Output Amount 100 400 900 # Voids Void 1 Estimated Blood Loss 400 - Exam Breasts: Present: normal Cardiovascular: Present: Regular rate Lungs: Present: Normal air movement Abdomen: Present: normal appearance, soft Uterus: Present: normal, fundal height below umbilicus Extremities: Present: normal Deep Tendon Reflex Grade: Normal +2 Incision: Present: normal, dry, intact - Labs Labs: Abnormal lab results 10/06/20 10/06/20 10/07/20 Range/Units 06:02 09:36 03:59 POC Glucose 109 H 114 H (70-105) mg/dL Ur Specific Trilla 1.032 H (1.003-1.030) Urine WBC (Auto) 45.0 H (0.0-6.0) /HPF U Epithel Cells (Auto) 15.0 H (0-13.0) /HPF
[2020-10-07] MEDS: ceFAZolin/NS 1 GM/50 ML 1 GM/50 ML BAG IV SCH ×2 (06:28→14:13)
[2020-10-07] MEDS: FERROUS SULFATE 325 MG TAB PO SCH (09:57)
[2020-10-07] MEDS: PRENATAL VIT27-FE FUMARATE-FOLIC ACID VIT TAB PO SCH (09:57)
[2020-10-07] MEDS: HYDROcodone/ACETAMINOPHEN 5-325 MG TAB PO PRN ×2 (14:16→20:42)
[2020-10-07 16:39] LABS: Hematocrit 31.4 % (30.3-42.9); Hemoglobin 10.7 gm/dl (10.1-14.3)
--- NOTE | 2020-10-07 19:01 | Post Anesthesia Evaluation ---
- Post Anesthesia Evaluation Patient Participated: Yes Airway Patent: Yes Stable Respiratory Function: Yes Nausea/Vomiting: No Temp > 96.8F: Yes Pain Manageable: Yes Adequeate Hydration: Yes Anesthesia Complications: No Block Receding Appropriately: Yes
[2020-10-07] MEDS ORDERED: IBUPROFEN 800 MG TAB PO PRN (22:58)
[2020-10-08] MEDS: HYDROcodone/ACETAMINOPHEN 5-325 MG TAB PO PRN ×2 (05:13→14:29)
--- NOTE | 2020-10-08 05:17 | Progress Note ---
Assessment and Plan - Patient Problems (1) delivery delivered Onset Date: ~10/07/20 Current Visit: Yes Status: Acute Subjective - Subjective Date of service: 10/08/20 Principal diagnosis: Day # 2 s/p section Objective - Vital Signs Latest vital signs: Vital Signs Temp Pulse Resp BP BP Pulse Ox 10/08/20 05:13 18 10/08/20 00:40 98.2 F 79 18 102/54 97 10/07/20 20:42 18 10/07/20 20:29 98.3 F 99 H 18 98/65 96 10/07/20 15:37 98.4 F 94 H 20 101/54 98 10/07/20 12:34 98.7 F 97 H 20 101/56 97 10/07/20 08:09 98.4 F 85 18 115/74 95 10/07/20 05:45 98.2 F 82 18 112/72 96 Intake and Output 10/07/20 10/07/20 10/08/20 14:59 22:59 06:59 Intake Total 480 1040 240 Output Total 800 900 600 Balance -320 140 -360 Intake: Oral 480 680 240 Intake, Free Water 360 Output: Urine 800 900 600 Indwelling Catheter 800 Void 0 900 600 Other: Total, Intake Amount 120 200 240 Total, Output Amount 0 400 600 # Voids Void 1 1 - Labs Labs: Abnormal lab results 10/07/20 10/07/20 Range/Units 16:38 22:12 POC Glucose 125 H 109 H (70-105) mg/dL
[2020-10-08] MEDS ORDERED: TETANUS,DIPH,PERTUSS(ACELL) VACCINE 0.5 ML SYRINGE IM ONE (06:00)
--- NOTE | 2020-10-08 06:22 | Discharge Summary ---
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 Used media gmat instructor on SO's phone. They both desire d/c today if possible. Pt req to go to her OB Clinic for her postoperative care. VSS FF below umb Lochia scant. Incision D&I. No s/sx of anemia Doing well s/p vincent tori. P: d/c today with instructions RT her clinic one week for postop care. Condition at discharge: Good Disposition: DC-01 TO HOME OR SELFCARE - Discharge Diagnoses (1) delivery delivered Status: Acute Comment: RTO one week postop care Plan - Discharge Medications Prescriptions: Ferrous Sulfate [Feosol 325 MG tab] 325 mg PO BID #60 tablet Ibuprofen [Motrin 800 MG tab] 800 mg PO Q6H PRN #30 tablet PRN Reason: Pain oxyCODONE /ACETAMINOPHEN [Percocet 5/325 mg] 1 - 2 tab PO Q6HR PRN #20 tablet PRN Reason: Pain - Provider Discharge Summary Activity: routine, no sex for 6 weeks, no heavy lifting 4 weeks, no strenuous exercise Diet: routine Instructions: routine Additional instructions: [] Smoking cessation referral if applicable(refer to patient education folder for contact #) [] Refer to [facility] Booklet Call your doctor immediately for: * Fever > 100.5 * Heavy vaginal bleeding ( >1 pad per hour) * Severe persistent headache * Shortness of breath * Reddened, hot, painful area to leg or breast * Drainage or odor from incision. * Keep incision clean and dry at all times and follow doctor's instructions regarding bathing/showering - Follow up plan Follow up: PRIMARY CARE, [Primary Care Provider] - 7 Days HIRO CARMICHAEL CNM [Advanced Practice Nurse] - 7 Days (Congratulations! Please call your OB clinic and schedule an appointment to be seen in 1 week for your postoperative care. Take medications as prescribed. Call with concerns.)
[2020-10-08] MEDS: FERROUS SULFATE 325 MG TAB PO SCH (10:24)
[2020-10-08] MEDS: PRENATAL VIT27-FE FUMARATE-FOLIC ACID VIT TAB PO SCH (10:24)
[2020-10-08 20:36] VITALS: BP 123/68
== END 2020-10-08 20:30 | disposition home or self-care (01) | DRG 788 ==
LOC: TRG 03:32 → APU 03:40 → LD 05:59 → TRG 05:59 → LD 06:25 → OB 10-07 00:22
PROVIDERS: ADMIT Obstetrics & Gynecology; ATTEND Obstetrics & Gynecology
PROC: 10D00Z1 Extraction of Products of Conception, Low, Open Approach (ICD-10-PCS; principal; 2020-10-06)
DX: O32.4XX0 Maternal care for high head at term, not applicable or unspecified (principal); O24.429 Gestational diabetes mellitus in childbirth, unspecified control; O99.02 Anemia complicating childbirth; Z20.822 Contact with and (suspected) exposure to COVID-19; O62.0 Primary inadequate contractions; O42.92 Full-term premature rupture of membranes, unspecified as to length of time between rupture and onset of labor; Z3A.37 37 weeks gestation of pregnancy; Z37.0 Single live birth
CPT/HCPCS: 36415; 59025; 80307; 81001; 82962; 84112; 85014; 85018; 85027; 86592; 86706; 86762; 86803; 86850; 86900; 86901; 87086; 87806; 90471; 90715; G0378; J0290; J0595; J0690; J1100; J1885; J2370; J2405; J2590; J2765; J3490; J7120; U0003